=== PATIENT | female | born 1960 | race Caucasian/White ===

== ENCOUNTER 2017-01-20 10:38 | Emergency (ER) | payer OTHER ==
[~2017-01-20] VITALS: Ht 170.2 cm; Wt 86.2 kg
[~2017-01-20 10:38] MED LIST: BUPR300T4 PO; CYCL10TA2 PO; DEXT30TA2 PO; GLIM4TAB2 PO; HYDR-2672 PO; IBUP-1060 PO; INSU100V13 SQ; LEVO112T4 PO; LIRA0.6P2 SQ; METF500T9 PO; SIMV40TA3 PO; ZOLP10TA4 PO
[2017-01-20 10:55] VITALS: BP 132/66
--- NOTE | 2017-01-20 12:44 | PHYS DOC ---
Past Medical History Past Medical History: Anxiety, Depression, Diabetes-Type II Additional Past Medical Histor: thyroid disease, ADD, prolapsed uterus Past Surgical History: Other Additional Past Surgical Histo: gastric sleeve, cervical fusion, R carpal tunnel, bilat rotator cuff, herni Alcohol Use: Rarely Drug Use: None Adult General Chief Complaint Chief Complaint: VAGINAL BLEEDING HPI HPI Patient is a 56 year old female presents emergency department stating that she has a history of a prolapsed uterus. She states that her father is in the hospital and she has been having to do some heavy lifting and pulling. She states that since that time she has felt that the uterus is prolapsed even more. She states that she occasionally has problems with urination as well as bowel movements. Patient denies any fever, chills or any nausea vomiting. She states that she did have an ASSISTANT PROGRAM DIRECTOR in [place] at the [facility] although the ASSISTANT PROGRAM DIRECTOR is no longer there. Patient states that she has also been having some vaginal discharge that is bloody. [] Review of Systems Review of Systems Constitutional: Denies fever or chills [] Eyes: Denies change in visual acuity, redness, or eye pain [] HENT: Denies nasal congestion or sore throat [] Respiratory: Denies cough or shortness of breath [] Cardiovascular: No additional information not addressed in HPI [] GI: Denies abdominal pain, nausea, vomiting, bloody stools or diarrhea [] : Denies dysuria or hematuria. C/o uterus prolapse Musculoskeletal: Denies back pain or joint pain [] Integument: Denies rash or skin lesions [] Neurologic: Denies headache, focal weakness or sensory changes [] Allergies Allergies Allergies Coded Allergies Type Severity Reaction Last Updated Verified ceftriaxone Allergy Severe Anaphylaxis 06/11/14 Yes Penicillins Allergy Intermediate Unknown 06/11/14 Yes Sulfa (Sulfonamide Antibiotics) Allergy Intermediate Unknown 06/11/14 Yes clarithromycin Allergy Intermediate Rash 06/11/14 Yes Physical Exam Physical Exam Constitutional: Well developed, well nourished, no acute distress, non-toxic appearance. [] HENT: Normocephalic, atraumatic, bilateral external ears normal, oropharynx moist, no oral exudates, nose normal. [] Eyes: PERRLA, EOMI, conjunctiva normal, no discharge. [] Neck: Normal range of motion, no tenderness, supple, no stridor. [] Cardiovascular:Heart rate regular rhythm, no murmur [] Lungs & Thorax: Bilateral breath sounds clear to auscultation [] Skin: Warm, dry, no erythema, no rash. [] Back: No tenderness Extremities: No tenderness, no cyanosis, no clubbing, ROM intact, no edema. [] Neurologic: Alert and oriented X 3, normal motor function, normal sensory function, no focal deficits noted. [] Psychologic: Affect normal, judgement normal, mood normal. [] Vaginal exam completed with minimal amount of bloody discharge noted. No prolapse noted at this time. Cultures obtained. Current Patient Data Vital Signs Vital Signs Date Time Temp Pulse Resp B/P Pulse Ox O2 Delivery O2 Flow Rate FiO2 01/20/17 10:55 98.1 97 22 132/66 98 Room Air 98.1 Lab Values Microbiology 01/20/17 Wet Prep - Final, Complete EKG EKG [] Radiology/Procedures Radiology/Procedures [] Course & Med Decision Making Course & Med Decision Making Pertinent Labs and Imaging studies reviewed. (See chart for details) Spoke with Dr. Reich in regards to patient and follow-up. He has no recommendations at this time except for follow-up with him in the office. Patient was provided this information by nursing staff patient is requesting a female ASSISTANT PROGRAM DIRECTOR. She will be discharged home with recommendations to follow-up with ASSISTANT PROGRAM DIRECTOR in the next week. Patient agrees with discharge treatment regimens and follow-up recommendations. Signs symptoms to return back to emergency department as been provided. Also encouraged patient to not do any heavy lifting. [] Dragon Disclaimer Dragon Disclaimer This electronic medical record was generated, in whole or in part, using a voice recognition dictation system. Departure Departure Impression: Primary Impression: Hx of uterine prolapse Disposition: HOME, SELF-CARE Condition: STABLE Referrals: CELIA HOFFMAN (PCP) Patient Instructions: Pelvic Pain, Female, [id number] Additional Instructions: Activity as tolerated although avoid doing any heavy lifting. Drink plenty of fluids. Follow-up with ASSISTANT PROGRAM DIRECTOR within the next week. Return back to emergency department sign symptoms of become worse. TARI WOODRUFF [employer] Jan 20, 2017 12:44
== END 2017-01-20 12:53 | disposition home or self-care (01) ==
LOC: ER 10:38
DX: N89.8 Other specified noninflammatory disorders of vagina (principal); F41.9 Anxiety disorder, unspecified; F32.9 Major depressive disorder, single episode, unspecified; E11.9 Type 2 diabetes mellitus without complications; F98.8 Other specified behavioral and emotional disorders with onset usually occurring in childhood and adolescence; Z88.1 Allergy status to other antibiotic agents; Z87.42 Personal history of other diseases of the female genital tract; Z88.0 Allergy status to penicillin; Z88.2 Allergy status to sulfonamides
CPT/HCPCS: 87491; 87591; 99284; Q0111

== ENCOUNTER → 2018-08-19 | Outpatient (CLI) | payer OTHER ==
[~2018-08-19] VITALS: Ht 172.7 cm; Wt 93.0 kg
[~2018-08-19] MED LIST changes: -HYDR-2672 PO; +HYDR-2766 PO; +LIDOCAINE WITH 8.4% SOD BICARB 3 ML DISP.SYRIN. IJ ONE; +LIDOCAINE WITH 8.4% SOD BICARB 3 ML DISP.SYRIN. ONE
--- NOTE | 2018-08-19 16:46 | RAD ---
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 The right upper extremity was prepped and draped using sterile barrier technique. All elements of maximal sterile barrier technique including the use of a cap, mask, sterile gown, sterile gloves, large sterile sheet, appropriate hand hygiene, and 2% chlorhexidine for cutaneous antisepsis (or acceptable alternative antiseptic per current guidelines) were followed for this procedure.. Real-time ultrasound demonstrated a patent right basilic vein which was prepped and draped in usual sterile fashion. 1% lidocaine used for local anesthesia. Using real-time ultrasound guidance the access needle percutaneously punctured the selected right basilic vein. Reference ultrasound images were saved to the medical record. A guidewire was advanced through the needle to the cavoatrial junction, and a peel-away sheath placed. The catheter was cut to length and inserted through the peel-away sheath such that its tip is at the cavoatrial junction. The wire and sheath were removed, and the catheter secured in place, and a sterile dressing was applied. Catheter was found to flush and aspirate normally. No immediate complications are identified. FLUORO TIME: 0.3 MIN DOSE AREA PRODUCT: 1 Gycm2 Impression: Ultrasound and fluoroscopically guided placement of a right upper extremity PICC line.
== END | disposition home or self-care (01) ==
LOC: INTRAD 10:01
PROVIDERS: ATTEND Internal Medicine Nephrology
DX: Z45.2 Encounter for adjustment and management of vascular access device (principal); Z88.0 Allergy status to penicillin; Z88.2 Allergy status to sulfonamides; Z88.1 Allergy status to other antibiotic agents; Z79.899 Other long term (current) drug therapy; Z79.01 Long term (current) use of anticoagulants
CPT/HCPCS: 36569; 76937; 77001; C1751; C1892

== ENCOUNTER 2018-11-06 15:00 | Emergency (ER) | payer OTHER ==
[~2018-11-06] VITALS: Ht 172.7 cm; Wt 95.3 kg
[~2018-11-06 15:00] MED LIST changes: -HYDR-2766 PO; +HYDR-2769 PO; -LIDOCAINE WITH 8.4% SOD BICARB 3 ML DISP.SYRIN. IJ ONE; -LIDOCAINE WITH 8.4% SOD BICARB 3 ML DISP.SYRIN. ONE
[2018-11-06 15:24] VITALS: BP 146/77
[2018-11-06 15:40] LABS: CLARITY,URINE TURBID; COLOR,URINE RED; PROTEIN,URINE >=300 mg/dL (NEG-TRACE)
[2018-11-06 15:57] LABS: RBC,URINE TNTC /HPF (0-2)
[2018-11-06 15:58] LABS: BACTERIA,URINE FEW /HPF (0-FEW); SQUAMOUS EPITHELIAL CELL,UR FEW /LPF; WBC,URINE 20-40 /HPF (0-4)
--- NOTE | 2018-11-06 16:30 | RAD ---
CT Abdomen and Pelvis without contrast History: Hematuria today Technique: Noncontrast CT imaging was performed of the abdomen and pelvis. Multiplanar images are reviewed. Exposure: One or more of the following individualized dose reduction techniques were utilized for this examination: 1. Automated exposure control 2. Adjustment of the mA and/or kV according to patient size 3. Use of iterative reconstruction technique. Comparison: None Findings: Accurate evaluation of abdominal visceral organs is limited without intravenous contrast. There is no obvious abnormality of the spleen, liver, or pancreas. There is no adrenal nodularity. No urolithiasis or hydronephrosis is identified. Gallbladder is present without obvious intraluminal abnormality by CT. Accurate evaluation of bowel is limited without oral contrast. There is no significant free air, free fluid, bowel dilatation. There is scattered diverticulosis greatest of the descending and sigmoid colon. There is scattered retained stool throughout colon. This is small fat-containing umbilical hernia, no internal bowel. There are postsurgical changes of the stomach. There is a small hiatal hernia. There is some fat in the right inguinal canal, no bowel. There is superior T12 height loss of uncertain chronicity, no retropulsion. Impression: 1. No urolithiasis or hydronephrosis is identified. 2. There is colonic diverticulosis. There is retained stool in the colon. 3. There is small fat-containing umbilical hernia, no internal bowel. 4. There is superior T12 height loss of uncertain chronicity, no osseous retropulsion. Electronically signed by: Roe Aragon MD (11/06/2018 4:25 PM) [facility]
[2018-11-06 17:02] LABS: BASO # 0.1 x10^3/uL (0.0-0.2); BASO % 1 % (0-3); EOS # 0.2 x10^3/uL (0.0-0.7); EOS % 2 % (0-3); HEMATOCRIT 42.3 % (36.0-47.0); HEMOGLOBIN 13.8 g/dL (12.0-15.5); LYMPH # 1.9 x10^3/uL (1.0-4.8); LYMPH % 22 % (24-48); MEAN CORPUSCULAR HEMOGLOBIN 27 pg (25-35); MEAN CORPUSCULAR HGB CONC 33 g/dL (31-37); MEAN CORPUSCULAR VOLUME 83 fL (79-100); MONO # 0.4 x10^3/uL (0.0-1.1); MONO % 5 % (0-9); NEUT # 6.2 x10^3uL (1.8-7.7); NEUT % 71 % (31-73); PLATELET COUNT 313 x10^3/uL (140-400); RED CELL DISTRIBUTION WIDTH 13.6 % (11.5-14.5); WHITE BLOOD COUNT 8.7 x10^3/uL (4.0-11.0)
--- NOTE | 2018-11-06 17:09 | PHYS DOC ---
Past Medical History Past Medical History: Depression, Diabetes-Type II, Hypothyroid Additional Past Medical Histor: thyroid disease, ADD, prolapsed uterus Past Surgical History: Gastric Bypass, Other Additional Past Surgical Histo: gastric sleeve, cervical fusion, R carpal tunnel, bilat rotator cuff, herni Alcohol Use: Occasionally Drug Use: None Adult General Chief Complaint Chief Complaint: BLOOD IN URINE HPI HPI Patient is a 58 year old [f__sex] who presents with [] Review of Systems Review of Systems Constitutional: Denies fever or chills [] Eyes: Denies change in visual acuity, redness, or eye pain [] HENT: Denies nasal congestion or sore throat [] Respiratory: Denies cough or shortness of breath [] Cardiovascular: No additional information not addressed in HPI [] GI: Denies abdominal pain, nausea, vomiting, bloody stools or diarrhea [] : Denies dysuria or hematuria [] Musculoskeletal: Denies back pain or joint pain [] Integument: Denies rash or skin lesions [] Neurologic: Denies headache, focal weakness or sensory changes [] Endocrine: Denies polyuria or polydipsia [] All other systems were reviewed and found to be within normal limits, except as documented in this note. Current Medications Current Medications Current Medications Medications (Trade) Dose Ordered Sig/Arley Start Time Stop Time Status Last Admin Dose Admin Ceftriaxone Sodium (Rocephin) 1 gm 1X ONCE 11/06/18 17:15 11/06/18 17:16 UNV Ciprofloxacin/ Dextrose 200 ml @ 200 mls/hr 1X ONCE 11/06/18 17:15 11/06/18 18:14 DC 11/06/18 17:34 200 MLS/HR Sodium Chloride 1,000 ml @ 1,000 mls/hr 1X ONCE 11/06/18 17:15 11/06/18 18:14 DC 11/06/18 17:35 1,000 MLS/HR Allergies Allergies Allergies Coded Allergies Type Severity Reaction Last Updated Verified ceftriaxone Allergy Severe Anaphylaxis 06/11/14 Yes Penicillins Allergy Intermediate Unknown 06/11/14 Yes Sulfa (Sulfonamide Antibiotics) Allergy Intermediate Unknown 06/11/14 Yes clarithromycin Allergy Intermediate Rash 06/11/14 Yes Physical Exam Physical Exam Constitutional: Well developed, well nourished, no acute distress, non-toxic appearance. [] HENT: Normocephalic, atraumatic, bilateral external ears normal, oropharynx moist, no oral exudates, nose normal. [] Eyes: PERRLA, EOMI, conjunctiva normal, no discharge. [] Neck: Normal range of motion, no tenderness, supple, no stridor. [] Cardiovascular:Heart rate regular rhythm, no murmur [] Lungs & Thorax: Bilateral breath sounds clear to auscultation [] Abdomen: Bowel sounds normal, soft, no tenderness, no masses, no pulsatile masses. [] Skin: Warm, dry, no erythema, no rash. [] Back: No tenderness, no CVA tenderness. [] Extremities: No tenderness, no cyanosis, no clubbing, ROM intact, no edema. [] Neurologic: Alert and oriented X 3, normal motor function, normal sensory function, no focal deficits noted. [] Psychologic: Affect normal, judgement normal, mood normal. [] Current Patient Data Vital Signs Vital Signs Date Time Temp Pulse Resp B/P (MAP) Pulse Ox O2 Delivery O2 Flow Rate FiO2 11/06/18 15:24 99.7 100 20 146/77 (100) 99 Room Air 99.7 Lab Values Laboratory Tests Test 11/06/18 15:24 11/06/18 16:50 Urine Collection Type Unknown Urine Color Red Urine Clarity Turbid Urine pH 5.0 Urine Specific [place] >=1.030 Urine Protein >=300 mg/dL (NEG-TRACE) Urine Glucose (UA) 500 mg/dL (NEG) Urine Ketones (Stick) mg/dL (NEG) Urine Blood Large (NEG) Urine Nitrite (NEG) Urine Bilirubin (NEG) Urine Urobilinogen Dipstick mg/dL (0.2 mg/dL) Urine Leukocyte Esterase (NEG) Urine RBC Tntc /HPF (0-2) Urine WBC 20-40 /HPF (0-4) Urine Squamous Epithelial Cells Few /LPF Urine Bacteria Few /HPF (0-FEW) Urine Mucus Mod /LPF White Blood Count 8.7 x10^3/uL (4.0-11.0) Red Blood Count 5.10 x10^6/uL (3.50-5.40) Hemoglobin 13.8 g/dL (12.0-15.5) Hematocrit 42.3 % (36.0-47.0) Mean Corpuscular Volume 83 fL (79-100) Mean Corpuscular Hemoglobin 27 pg (25-35) Mean Corpuscular Hemoglobin Concent 33 g/dL (31-37) Red Cell Distribution Width 13.6 % (11.5-14.5) Platelet Count 313 x10^3/uL (140-400) Neutrophils (%) (Auto) 71 % (31-73) Lymphocytes (%) (Auto) 22 % (24-48) L Monocytes (%) (Auto) 5 % (0-9) Eosinophils (%) (Auto) 2 % (0-3) Basophils (%) (Auto) 1 % (0-3) Neutrophils # (Auto) 6.2 x10^3uL (1.8-7.7) Lymphocytes # (Auto) 1.9 x10^3/uL (1.0-4.8) Monocytes # (Auto) 0.4 x10^3/uL (0.0-1.1) Eosinophils # (Auto) 0.2 x10^3/uL (0.0-0.7) Basophils # (Auto) 0.1 x10^3/uL (0.0-0.2) Sodium Level 136 mmol/L (136-145) Potassium Level 4.5 mmol/L (3.5-5.1) Chloride Level 98 mmol/L (98-107) Carbon Dioxide Level 27 mmol/L (21-32) Anion Gap 11 (6-14) Blood Urea Nitrogen 13 mg/dL (7-20) Creatinine 0.8 mg/dL (0.6-1.0) Estimated GFR (Cockcroft-Gault) 73.2 BUN/Creatinine Ratio 16 (6-20) Glucose Level 290 mg/dL (70-99) H Calcium Level 9.5 mg/dL (8.5-10.1) Total Bilirubin 0.2 mg/dL (0.2-1.0) Aspartate Amino Transferase (AST) 14 U/L (15-37) L Alanine Aminotransferase (ALT) 22 U/L (14-59) Alkaline Phosphatase 104 U/L (46-116) Total Protein 7.0 g/dL (6.4-8.2) Albumin 3.3 g/dL (3.4-5.0) L Albumin/Globulin Ratio 0.9 (1.0-1.7) L Laboratory Tests 11/06/18 16:50 Laboratory Tests 11/06/18 16:50 EKG EKG [] Radiology/Procedures Radiology/Procedures PROCEDURE: CT ABDOMEN PELVIS WO CONTRAST CT Abdomen and Pelvis without contrast History: Hematuria today Technique: Noncontrast CT imaging was performed of the abdomen and pelvis. Multiplanar images are reviewed. Exposure: One or more of the following individualized dose reduction techniques were utilized for this examination: 1. Automated exposure control 2. Adjustment of the mA and/or kV according to patient size 3. Use of iterative reconstruction technique. Comparison: None Findings: Accurate evaluation of abdominal visceral organs is limited without intravenous contrast. There is no obvious abnormality of the spleen, liver, or pancreas. There is no adrenal nodularity. No urolithiasis or hydronephrosis is identified. Gallbladder is present without obvious intraluminal abnormality by CT. Accurate evaluation of bowel is limited without oral contrast. There is no significant free air, free fluid, bowel dilatation. There is scattered diverticulosis greatest of the descending and sigmoid colon. There is scattered retained stool throughout colon. This is small fat-containing umbilical hernia, no internal bowel. There are postsurgical changes of the stomach. There is a small hiatal hernia. There is some fat in the right inguinal canal, no bowel. There is superior T12 height loss of uncertain chronicity, no retropulsion. Impression: 1. No urolithiasis or hydronephrosis is identified. 2. There is colonic diverticulosis. There is retained stool in the colon. 3. There is small fat-containing umbilical hernia, no internal bowel. 4. There is superior T12 height loss of uncertain chronicity, no osseous retropulsion.[] Course & Med Decision Making Course & Med Decision Making Pertinent Labs and Imaging studies reviewed. (See chart for details) [] Dragon Disclaimer Dragon Disclaimer This electronic medical record was generated, in whole or in part, using a voice recognition dictation system. Departure Departure Impression: Primary Impression: UTI (urinary tract infection) Additional Impression: Dysuria Disposition: 01 HOME, SELF-CARE Condition: STABLE Referrals: CELIA HOFFMAN (PCP) BRIAN RODRIGEZ MD Patient Instructions: Urinary Tract Infection, [id number] Additional Instructions: Fill prescription(s) and use as directed. Avoid bladder irritants such as caffeine, carbonation, and spicy foods. Increase clear fluids. Follow up with your primary care doctor if symptoms persist, return to the ER if symptoms worsen. Scripts Phenazopyridine Hcl (PYRIDIUM) 100 Mg Tablet 100 MG PO TID for 2 Days, #6 TAB 0 Refills Prov: NILS CABRERA APRN 11/06/18 Ciprofloxacin Hcl (CIPRO) 500 Mg Tablet 1 TAB PO BID, #14 TAB 0 Refills Prov: NILS CABRERA APRN 11/06/18 Problem Qualifiers Primary Impression: UTI (urinary tract infection) Urinary tract infection type: site unspecified Hematuria presence: with hematuria Qualified Codes: N39.0 - Urinary tract infection, site not specified ; R31.9 - Hematuria, unspecified NILS CABRERA APRN Nov 06, 2018 17:09
[2018-11-06 17:10] LABS: CALCIUM 9.5 mg/dL (8.5-10.1); CREATININE 0.8 mg/dL (0.6-1.0); GFR 73.2; POTASSIUM 4.5 mmol/L (3.5-5.1)
[2018-11-06] MEDS ORDERED: cefTRIAXone IV Push 1 GM VIAL. IVP ONE (17:15)
[2018-11-06] MEDS ORDERED: CIPROFLOXACIN 400MG PREMIX 200 ML IV ONE (17:15)
[2018-11-06] MEDS ORDERED: IV NORMAL SALINE 1000ML BAG 1,000 ML IV ONE (17:15)
[2018-11-06 17:16] LABS: ALBUMIN 3.3 g/dL (3.4-5.0); ALBUMIN/GLOBULIN RATIO 0.9 (1.0-1.7); TOTAL BILIRUBIN 0.2 mg/dL (0.2-1.0)
[2018-11-06] MEDS ORDERED: CIPR500T94 PO (18:25)
[2018-11-06] MEDS ORDERED: PHEN100T82 PO (18:25)
== END 2018-11-06 18:53 | disposition home or self-care (01) ==
LOC: ER 15:00
DX: N39.0 Urinary tract infection, site not specified (principal); K57.32 Diverticulitis of large intestine without perforation or abscess without bleeding; K42.9 Umbilical hernia without obstruction or gangrene; E11.9 Type 2 diabetes mellitus without complications; E03.9 Hypothyroidism, unspecified; F32.9 Major depressive disorder, single episode, unspecified; Z88.0 Allergy status to penicillin; Z88.2 Allergy status to sulfonamides; Z88.1 Allergy status to other antibiotic agents
CPT/HCPCS: 36415; 74176; 80053; 81001; 85025; 96365; 99284; J0744; J7030

== ENCOUNTER → 2019-01-03 | Outpatient (CLI) | payer OTHER ==
[~2019-01-03] MED LIST changes: +CIPR500T94 PO; +PHEN100T82 PO
--- NOTE | 2019-01-03 16:22 | KCIC ---
MR of the left ankle HISTORY: Left ankle injury after a fall. Fell one month ago. Medial and lateral pain. TECHNIQUE: Routine multiplanar sequences are obtained. FINDINGS: Peroneal tendons are intact. Thickening and ill-definition of the anterior talofibular ligament compatible with a sprain/partial tear. No complete rupture or discontinuity. Milder sprain of the calcaneofibular and posterior talofibular ligament. Thickening and irregularity of the anterior inferior tibiofibular ligament compatible with sprain/partial tear. Posterior tibial and flexor tendons are intact. No acute medial ligamentous injury. Anterior tibial and extensor tendons are intact. Achilles tendon is intact. No acute plantar fasciitis. Subtalar joints are patent. Tarsal sinus is intact. Talar dome is intact. Small nondisplaced intra-articular fracture at the anterolateral tibia. Mild soft tissue edema around the ankle. Small tibiotalar and subtalar joint effusions. IMPRESSION: 1. Small nondisplaced intra-articular fracture of the distal anterolateral tibia. 2. Lateral collateral ligament sprain/partial tears. 3. Anterior inferior tibiofibular ligament sprain/partial tear. FOR INTERNAL CODING PURPOSES Critical result: Findings discussed with Niki Washington in the office of the ordering provider at 01/03/2019 4:18 PM. RESULT CODE: (C) Electronically signed by: Rubens Shankar MD (01/03/2019 4:19 PM) [id number]
== END | disposition home or self-care (01) ==
LOC: KCIC MRI 14:28
PROVIDERS: ATTEND Physician Assistant Medical
DX: S82.392A Other fracture of lower end of left tibia, initial encounter for closed fracture (principal); S83.422A Sprain of lateral collateral ligament of left knee, initial encounter; X58.XXXA Exposure to other specified factors, initial encounter; Y93.89 Activity, other specified; Y92.89 Other specified places as the place of occurrence of the external cause; Y99.8 Other external cause status
CPT/HCPCS: 73721